=== PATIENT | female | born 1955 | race African-American/Black ===

== ENCOUNTER 2021-06-17 18:02 | Emergency (ER) | payer OTHER ==
[~2021-06-17] VITALS: Ht 157.5 cm; Wt 81.7 kg
[2021-06-17 18:15] VITALS: BP 104/48
[2021-06-17] MEDS ORDERED: TESSALON PERLE100 MG PO (19:18)
[2021-06-17] MEDS ORDERED: PROAIR HFA8.5 GM INH (19:18)
== END 2021-06-17 19:32 | disposition home or self-care (01) ==
LOC: ER 18:02
DX: U07.1 COVID-19 (principal)